=== PATIENT | female | born 1985 | race African-American/Black ===

== ENCOUNTER 2019-10-11 12:10 | Emergency (ER) | payer MEDICAID ==
[~2019-10-11] VITALS: Ht 167.6 cm; Wt 53.9 kg
[2019-10-11 12:32] VITALS: BP 116/56
--- NOTE | 2019-10-11 12:45 | NUR ---
PATIENT STATES HERE FOR PREG TEST. SHE IS LATE FOR PERIOD ONE WEEK OR TOO. LMP WAS 08/28.
[2019-10-11 13:10] LABS: HCG UR SG 1.037 (1.003-1.030)
[2019-10-11 13:13] LABS: CULTURE INDICATED? YES; MICROSCOPIC INDICATED
== END 2019-10-11 13:48 | disposition home or self-care (01) ==
LOC: ED 13:35
DX: O23.11 Infections of bladder in pregnancy, first trimester (principal); J45.909 Unspecified asthma, uncomplicated; Z3A.01 Less than 8 weeks gestation of pregnancy
CPT/HCPCS: 81001; 81025; 87077; 87086; 87186; 99283

== ENCOUNTER 2020-02-17 19:58 | Outpatient (CLI) | payer MEDICAID ==
[~2020-02-17] VITALS: Ht 165.1 cm; Wt 50.0 kg
[2020-02-17 20:59] LABS: MICROSCOPIC INDICATED
[2020-02-17 21:00] VITALS: BP 98/54
[2020-02-17 21:16] LABS: AMPHETAMINE SCREEN, URINE Negative (Negative); BARBITURATE SCREEN, URINE Negative (Negative); BENZODIAZEPINE SCREEN, URINE Negative (Negative); CANNABINOID SCREEN, URINE Positive (Negative); COCAINE SCREEN, URINE Negative (Negative); METHADONE SCREEN, URINE Negative (Negative); OPIATE SCREEN, URINE Negative (Negative)
[2020-02-17 22:12] LABS: MEAN CORPUSCULAR HEMOGLOBIN 29.8 pg (27.0-34.8); MEAN CORPUSCULAR HGB CONC 32.4 g/dL (32.4-35.8); MEAN CORPUSCULAR VOLUME 91.8 fL (80-100); MEAN PLATELET VOLUME 8.6 fL (7.4-10.4); PLATELET COUNT 235 x10^3/uL (130-400); RED BLOOD COUNT 3.79 x10^6/uL (3.82-5.3); RED CELL DISTRIBUTION WIDTH 14.5 % (9.6-15.2)
[2020-02-17] MEDS ORDERED: LIDOCAINE 1%, 20ML ONE (22:13)
[2020-02-17] MEDS ORDERED: MISOPROSTOL 200 MCG TABLET ONE (22:13)
[2020-02-17] MEDS ORDERED: NEWBORN KIT ONE (22:13)
[2020-02-17] MEDS ORDERED: OXYTOCIN 30U/ 0.9% NaCL 500ML 500 ML ONE (22:13)
[2020-02-17 23:54] LABS: CLUE CELLS NONE SEEN (NONE SEEN); WET PREP WBCS NONE SEEN (FEW)
== END 2020-02-17 22:58 | disposition home or self-care (01) ==
LOC: LDOP 19:58
PROVIDERS: ATTEND Obstetrics & Gynecology
DX: O26.892 Other specified pregnancy related conditions, second trimester (principal); N89.8 Other specified noninflammatory disorders of vagina; Z3A.26 26 weeks gestation of pregnancy
CPT/HCPCS: 36415; 59025; 76805; 80307; 81001; 84112; 85027; 86592; 86762; 86850; 86900; 87077; 87086; 87186; 87210; 87340; 87491; 87591; 87806; 87808; 99211; G0463; G0475